=== PATIENT | female | born 1995 | race Caucasian/White ===

== ENCOUNTER 2018-04-05 19:49 | Emergency (ER) | payer OTHER ==
[2018-04-05 20:22] VITALS: BP 118/70
--- NOTE | 2018-04-05 22:37 | ER Document Report ---
ED General - General Chief Complaint: Needle Stick Exposure Stated Complaint: WC/PUNCTURE WOUND Time Seen by Provider: 04/05/18 22:03 Notes: Patient is a 22-year-old female that presents to the emergency department for chief complaint of bodily fluid exposure. Patient states that while she was at work, she was cleaning up, and noticed that there was some bloody gauze, and material that she is been placed in the biohazard, this was moved, to a barrier has not been, and then she reached back into the trash and felt a engraving operator her right palm, there is no blood noted, she is not sure if there is a break in the glove. But was told by her work to go to urgent care or the ER to be evaluated, and have testing for HIV and hepatitis C. 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 She states she is otherwise healthy, not aware of whether she was actually poked by a needle, she did not see a needle. She did not know which patient this would have came from. Past Medical History: Denies chronic medical conditions Past Surgical History: Denies surgical history Social History: Denies tobacco, alcohol or drug use. Family History: Reviewed and noncontributory for presenting illness Allergies: Reviewed, see documented allergy list. REVIEW OF SYSTEMS: Other than noted above, the 12 point review of systems was reviewed with the patient and were negative, all pertinent findings are included in the HPI. PHYSICAL EXAMINATION: Vital signs reviewed, nursing noted reviewed. GENERAL: Well-appearing, well-nourished and in no acute distress. HEAD: Atraumatic, normocephalic. EYES: Eyes appear normal, sclera anicteric, conjunctiva are normal. ENT: Moist mucous membranes. NECK: Normal range of motion, supple without lymphadenopathy LUNGS: Breath sounds clear to auscultation bilaterally and equal. No wheezes rales or rhonchi. HEART: Regular rate and rhythm without murmurs EXTREMITIES: Nontender, good range of motion, no pitting or edema. There is a 1 mm area of erythema on the right palm, no break in the skin noted, this area is nontender no blood. The rest of the extremity exam is unremarkable. NEUROLOGICAL: No focal neurological deficits. Moves all extremities spontaneously Motor and sensory grossly intact on exam. PSYCH: Normal mood, normal affect. SKIN: Warm, Dry, normal turgor, no rashes or lesions noted on exposed skin TRAVEL OUTSIDE OF THE [place] IN LAST 30 DAYS: No - Related Data Allergies/Adverse Reactions: No Known Allergies Allergy (Unverified 04/05/18 19:50) Past Medical History - Social History Smoking Status: Never Smoker Chew tobacco use (# tins/day): No Drug Abuse: None Family History: Reviewed & Not Pertinent Patient has suicidal ideation: No Patient has homicidal ideation: No Renal/ Medical History: Denies: Hx Peritoneal Dialysis Physical Exam - Vital signs Vitals: Temp Pulse Resp BP Pulse Ox 99.0 F 85 16 118/70 100 04/05/18 20:20 04/05/18 20:20 04/05/18 20:20 04/05/18 20:20 04/05/18 20:20 Course - Re-evaluation Re-evalutation: I discussed with the patient testing for needlestick exposure, including hepatitis C and HIV testing, without known source, the testing in an otherwise healthy patient would be negative, and there is a chance for false positive testing, she is made aware of this, she wished to proceed, to have the testing done, and was ordered as indicated, I educated her that her potential exposure was exceedingly low risk, given that there is no blood, and not in apparent break in the glove that she was wearing. Patient understood this, she is advised to follow-up on her testing and with her work in occupational health. - Vital Signs Vital signs: Temp Pulse Resp BP Pulse Ox 99.0 F 85 16 118/70 100 04/05/18 20:20 04/05/18 20:20 04/05/18 20:20 04/05/18 20:20 04/05/18 20:20 Discharge - Discharge Clinical Impression: Exposure to blood or body fluid Condition: Stable Disposition: HOME, SELF-CARE Additional Instructions: Please call to follow-up on results of testing, we will call with a positive result. Referrals: LEANNE ARMSTRONG MD [ACTIVE STAFF] - Follow up in 3-5 days (primary care )
== END 2018-04-05 22:30 | disposition home or self-care (01) ==
LOC: ER 19:49
DX: S61.431A Puncture wound without foreign body of right hand, initial encounter (principal); W46.1XXA Contact with contaminated hypodermic needle, initial encounter; Y92.239 Unspecified place in hospital as the place of occurrence of the external cause; Y99.0 Civilian activity done for income or pay
CPT/HCPCS: 36415; 86701; 87521; 99283